=== PATIENT | female | born 1985 | race Caucasian/White ===

== ENCOUNTER 2016-08-10 07:30 | Day surgery (SDC) | payer MEDICAID ==
[~2016-08-10] VITALS: Ht 165.1 cm; Wt 87.1 kg
[~2016-08-10 07:30] MED LIST: AUGMENTIN1 TA3 PO; BIRTH CONTROL PILLS; CIPRO 500MG TA500 MG PO; DILAUDID2 MG PO; HYDROCODONE1 TABLET PO; IMODIUM 2MG. CAP2 MG OR; KEFLEX 500MG.500 MG PO; LABETALOL HCL200 MG PO; LORTAB 5/500 501 TAB PO; MEDROL 4MG. DOSE4 MG PO; MOTRIN 400MG.400 MG PO; NAPROSYN 500MG500 MG PO; NOMEDS *; PERCOCET 5/3251 EACH PO; PHENERGAN25 M3 PO; PREDNISONE 20MG20 MG PO; PRENATAL PLUS1 TA1 PO; TYLENOL ES500 M1 OR; TYLENOL ES500 M1 PO
--- NOTE | 2016-08-10 10:07 | Operative Note ---
Procedure/Operative Record Procedure Date of procedure: 08/10/16 Pre-Op Dx: LEFT ovarian dermoid cyst Post-Op Dx: LEFT ovarian dermoid cyst Procedure performed: Laparoscopic LEFT salpingo-oophorectomy Surgeon: Dr. Lili Waters Health Insurance Adjuster(s): None Anesthesia: Pito Calderón EBL (ml): 100 Clinical note: She is a 31-year-old lady who complains of LEFT lower quadrant pain. She seen in the ER and had a 3 cm LEFT ovarian dermoid cyst. She's had dermoid cysts in the past on the LEFT side and as result of that she wanted to have a laparoscopic LEFT salpingo-oophorectomy so this did not return. 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 It was filled with yellow greasy liquid as well as hair. The rest the pelvis. Normal. The appendix was visualized appeared normal although somewhat stiff. There was no evidence of appendicitis. There was a small amount of hypervascularity on the appendix. The upper abdomen appeared normal. The RIGHT ovary appeared normal. The RIGHT tube had been previously ligated. The uterus was anteverted normal in shape and size. The bladder flap appeared normal. There was no evidence of endometriosis. Operative note: She was taken to the operating room where general anesthesia was found be adequate. She was prepped and draped in the normal sterile fashion in the semi- lithotomy position. A weighted speculum was placed in the vagina and the anterior lip of the cervix was grasped with a tenaculum. Villafuerte dilators used to dilate the cervix to approximately 4 mm. I then inserted a Kelsey uterine manipulator into the uterine cavity. The balloon was insufflated. I injected approximately 10 mL of 0.5 percent ropivacaine around the M like us and made a small incision within the umbilicus. I then inserted a Veress needle into the abdominal cavity. The abdominal cavity was then insufflated with carbon oxide gas to a pressure of 20 mm's of mercury. I then inserted an 11 mm trocar under direct vision. We injected through and through the pivot hairline, made a small incision here and inserted a 5 mm trocar under direct vision. I identified the inferior epigastric arteries on the LEFT side, went lateral to these and injected through and through. I then made a small incision and inserted a 5 mm trocar under direct vision. I grasped the LEFT round ligament and using Harmonic scalpel opened this up. I then opened up the utero-ovarian ligament with Harmonic scalpel on coagulation mode. I then opened up the peritoneum along the infundibulo pelvic ligament and freed up the ovary on its infundibulopelvic ligament. I then placed 2 Endoloops over the ligament. I then cut away the ovary and tube from the blood supply. After rinsing the pelvis and assuring hemostasis I then opened up the ovary and drained out approximately 10 mL of yellow greasy fluid. There was also hair in the ovary. I then change cameras and placed a 5 mm camera through the suprapubic port. Through the 11 mm port I placed an Endo Catch bag. I placed the ovary in the Endo Catch bag. This was removed through the umbilical port. I had to extend the size of the port with Beth clamps and a small knife. This released the ovary and it came out through this port. I then changed back to the 11 mm camera and once again attached checked for hemostasis. I rinsed the pelvis well with copious saline to remove any of the greasy fluid from the dermoid cyst. I LEFT proximal 100 mL of saline in the pelvis and then injected approximately 25 mL of 0.5 percent ropivacaine. The secondary trochars were then removed under direct vision. The primary trocar and camera was removed together. No bowel was seen to follow. The primary trocar site was closed deeply with interrupted 2-0 Vicryl suture along the fascia. I then closed a second layer with deep 2-0 Vicryl suture. The skin was closed with interrupted subcu care 4-0 Monocryl suture. The 5 mm trocar sites were closed with subcuticular 4-0 Monocryl. Sterile dressings were applied. The patient tolerated the procedure well and was taken to the recovery room in excellent condition. All sponge instrument and needle counts were correct. This had a blood loss was less than 100 mL. Conplications: None Specimens: LEFT ovary and tube. at 1005
[2016-08-10 15:13] VITALS: BP 125/78
[2016-10-22] MEDS ORDERED: MEDROL 4MG. DOSE4 MG PO (16:54)
[2016-10-22] MEDS ORDERED: BROMFED DM COU118 ML PO (16:54)
[2016-10-22] MEDS ORDERED: ZITHROMAX Z PA250 MG PO (16:54)
== END 2016-08-10 11:50 | disposition home or self-care (01) ==
LOC: SDC 07:30
PROVIDERS: Nurse Practitioner Obstetrics & Gynecology
PROC: 0UT64ZZ Resection of Left Fallopian Tube, Percutaneous Endoscopic Approach (ICD-10-PCS; 2016-08-10)
PROC: 0UT14ZZ Resection of Left Ovary, Percutaneous Endoscopic Approach (ICD-10-PCS; principal; 2016-08-10 08:45)
DX: D27.1 Benign neoplasm of left ovary (principal)
CPT/HCPCS: J0131; J2710

== ENCOUNTER → 2017-06-19 | Outpatient (CLI) | payer MEDICAID ==
[~2017-06-19] MED LIST changes: +AMOXICILLIN875 MG PO; +BROMFED DM COU118 ML PO; +BUPRENORPHINE H1 TAB SL; +PENICILLIN-VK250 MG PO; +ZITHROMAX Z PA250 MG PO
[2017-06-19 18:19] LABS: HEMOGLOBIN 13.5 g/dL (12.2-16.2); LYMPH # 2.1 K/mm3 (0.7-4.5); LYMPH % 27.5 % (10-50.0)
[2017-06-19 20:06] LABS: BUN 9 mg/dL (7-18)
[2017-06-19 20:08] LABS: GFR (ESTIMATED) 98 ML/MIN (59-)
[2017-06-21 05:36] LABS: HBsAg Screen Negative (Negative); Hep A Ab, IgM Negative (Negative); Hep B Core Ab, IgM Negative (Negative); Hep C Virus Ab <0.1 (0.0-0.9)
== END ==
LOC: LAB 17:53
PROVIDERS: Emergency Medicine
DX: R53.83 Other fatigue (principal)